=== PATIENT | male | born 1985 | race American Indian/Alaskan Native ===

== ENCOUNTER 2021-07-24 20:52 | Emergency (ER) | payer SELFPAY ==
--- NOTE | 2021-07-25 01:31 | Emergency Department Report ---
ED Neck Pain/Injury HPI - General Chief Complaint: Neck Pain/Injury Stated Complaint: NECK/BACK PAIN WITH N/V Time Seen by Provider: 07/25/21 00:07 Mode of arrival: Ambulatory Limitations: No Limitations - History of Present Illness Initial Comments: 35-year-old -Congolese male Leonie reports emergency department complaining of waking up 1 week ago with neck pain to the left side which felt like a crook. States that he tried to treat it with [id number] medication but it continue to to worsen in intensity and began to be associated with nausea and feverish sensations. Reports no odynophagia or dysphagia. Reports no chest pain, palpitations, no rashes or ear pain. Reports no presyncope noted. Reports no no rashes. Medications [id number] did provide some mild relief to the to the pain but no complete resolutions and symptoms do not worsen no he sleeps well wakes up but remains fairly constant. MD Complaint: neck pain Place: home Severity: mild, moderate Quality: dull Consistency: constant Improves With: none Worsens With: none - Related Data Previous Rx's Medication Instructions Recorded Last Taken Type Amoxicillin [Trimox CAP] 500 mg PO Q8H #21 capsule 07/25/21 Unknown Rx methOCARBAMOL [Robaxin TAB] 750 mg PO Q8H #21 07/25/21 Unknown Rx ED Review of Systems ROS: Stated complaint: NECK/BACK PAIN WITH N/V Other details as noted in HPI ED Past Medical Hx - Medications Home Medications: Home Medications Medication Instructions Recorded Confirmed Last Taken Type Amoxicillin [Trimox CAP] 500 mg PO Q8H #21 capsule 07/25/21 Unknown Rx methOCARBAMOL [Robaxin TAB] 750 mg PO Q8H #21 07/25/21 Unknown Rx ED Physical Exam - General Limitations: No Limitations ED Course Vital Signs 07/24/21 22:20 Temperature 98 F Pulse Rate 102 H Respiratory 16 Rate Blood Pressure 124/80 [Right] O2 Sat by Pulse 100 Oximetry Critical care attestation.: If time is entered above; I have spent that time in minutes in the direct care of this critically ill patient, excluding procedure time. ED Disposition Disposition: HOME / SELF CARE / HOMELESS Condition: Stable Instructions: Neck Exercises, Radicular Pain, Lymphadenopathy, Pain Without a Known Cause Prescriptions: methOCARBAMOL [Robaxin TAB] 750 mg PO Q8H #21 Amoxicillin [Trimox CAP] 500 mg PO Q8H #21 capsule Referrals: ANALISA JULIAN MD [Primary Care Provider] - 3-5 Days
[2021-07-25 01:51] VITALS: BP 133/76
== END 2021-07-25 01:51 | disposition home or self-care (01) ==
LOC: ED 20:52
DX: M54.2 Cervicalgia (principal)
CPT/HCPCS: 99282

== ENCOUNTER 2021-08-10 06:16 | Emergency (ER) | payer SELFPAY ==
[2021-08-10] MEDS ORDERED: KETOROLAC 60 MG/2 ML INJ IM SCH (10:00)
[2021-08-10] MEDS ORDERED: dexAMETHasone 4 MG/ML VIAL IM SCH (10:00)
--- NOTE | 2021-08-10 10:17 | Emergency Department Report ---
ED Neck Pain/Injury HPI - General Chief Complaint: Neck Pain/Injury Stated Complaint: NECK AND LT ARM PAIN Time Seen by Provider: 08/10/21 09:54 Mode of arrival: Ambulatory Limitations: No Limitations - History of Present Illness Initial Comments: 35-year-old black male with no past medical history presents to the emergency department for evaluation of over a week history of left neck and shoulder pain that radiates down his arm. He states that he was seen here about a week ago for same and treated with amoxicillin and muscle relaxants but has had no relief. He states that pain is 8-9 out of 10 persistently and is so bad that he has had problems sleeping. He denies chest pain, shortness of breath, nausea, vomiting, dizziness, and diaphoresis. He denies any injury. MD Complaint: neck injury -: Gradual, week(s) (1.5) Place: home Radiation: left lateral, left shoulder, upper back Severity: severe Severity scale (0 -10): 9 Quality: aching Consistency: constant Worsens With: movement of extremity, movement of neck, other (Palpation) Associated Symptoms: denies: headache, fever, numbness, tingling, weakness, vertigo, difficulty walking, swollen glands, difficulty swallowing, nausea, vomiting Treatments Prior to Arrival: Ibuprofen, other (Muscle relaxant) - Related Data Previous Rx's Medication Instructions Recorded Last Taken Type Amoxicillin [Trimox CAP] 500 mg PO Q8H #21 capsule 07/25/21 Unknown Rx methOCARBAMOL [Robaxin TAB] 750 mg PO Q8H #21 07/25/21 Unknown Rx methylPREDNISolone [Medrol 4MG 4 mg PO DAILY #1 pack 08/10/21 Unknown Rx DOSEPAK (21 tabs)] Allergies Allergy/AdvReac Type Severity Reaction Status Date / Time No Known Allergies Allergy Verified 08/10/21 10:05 ED Review of Systems ROS: Stated complaint: NECK AND LT ARM PAIN Other details as noted in HPI Comment: All other systems reviewed and negative Constitutional: denies: chills, fever, weakness Eyes: denies: vision change Respiratory: denies: cough, shortness of breath, SOB with exertion, SOB at rest Cardiovascular: denies: chest pain, palpitations, dyspnea on exertion Gastrointestinal: denies: abdominal pain, nausea, vomiting Musculoskeletal: back pain Neurological: denies: headache, weakness ED Past Medical Hx - Medications Home Medications: Home Medications Medication Instructions Recorded Confirmed Last Taken Type Amoxicillin [Trimox CAP] 500 mg PO Q8H #21 capsule 07/25/21 Unknown Rx methOCARBAMOL [Robaxin TAB] 750 mg PO Q8H #21 07/25/21 Unknown Rx methylPREDNISolone [Medrol 4MG 4 mg PO DAILY #1 pack 08/10/21 Unknown Rx DOSEPAK (21 tabs)] ED Physical Exam - General Limitations: No Limitations General appearance: alert, in no apparent distress - Head Head exam: Present: atraumatic, normocephalic - Eye Eye exam: Present: normal appearance. Absent: conjunctival injection - Neck Neck exam: Present: normal inspection, tenderness. Absent: full ROM (Left side), lymphadenopathy - Expanded Neck Exam Expanded Neck exam: Absent: midline deformity, anterior neck swelling, tracheal deviation - Respiratory Respiratory exam: Present: normal lung sounds bilaterally. Absent: respiratory distress, wheezes, rales, rhonchi, chest wall tenderness - Cardiovascular Cardiovascular Exam: Present: tachycardia, normal heart sounds - GI/Abdominal GI/Abdominal exam: Present: soft, normal bowel sounds. Absent: distended, tenderness, guarding, rebound, rigid - Extremities Exam Extremities exam: Present: normal inspection - Expanded Upper Extremity Exam Left Shoulder Exam: Present: normal inspection, tenderness, other (Decreased range of motion). Absent: full ROM, swelling, abrasion, laceration, ecchymosis, deformity, crepidus, dislocation, erythema, tenderness over AC joint Upper Arm exam: Present: normal inspection Vascular: Present: normal capillary refill, radial pulse. Absent: vascular compromise - Back Exam Back exam: Present: normal inspection, tenderness (Left upper). Absent: CVA tenderness (R), CVA tenderness (L), paraspinal tenderness, vertebral tenderness - Neurological Exam Neurological exam: Present: alert, oriented X3, CN II-XII intact, normal gait, reflexes normal. Absent: motor sensory deficit - Expanded Neurological Exam Expanded Patient oriented to: Present: person, place, time Speech: Present: fluid speech Cranial nerves: EOM's Intact: Normal Motor strength exam: RUE: 5, LUE: 5, RLE: 5, LLE: 5 Best Eye Response ([place]): (4) open spontaneously Best Motor Response ([place]): (6) obeys commands Best Verbal Response ([place]): (5) oriented [place] Total: 15 - Psychiatric Psychiatric exam: Present: normal affect, normal mood - Skin Skin exam: Present: warm, dry, intact, normal color ED Course Vital Signs 08/10/21 06:20 Temperature 97.7 F Pulse Rate 127 H Respiratory 20 Rate Blood Pressure 154/97 O2 Sat by Pulse 99 Oximetry ED Medical Decision Making - Medical Decision Making 35-year-old black male with no past medical history presents to the emergency department for evaluation of over a week history of left neck and shoulder pain that radiates down his arm. He states that he was seen here about a week ago for same and treated with amoxicillin and muscle relaxants but has had no relief. He states that pain is 8-9 out of 10 persistently and is so bad that he has had problems sleeping. He denies chest pain, shortness of breath, nausea, vomiting, dizziness, and diaphoresis. He denies any injury. Patient denies any other symptoms except for left neck pain radiating down left arm with soreness to muscles and upper back left neck. Description of pain and assessment consistent with cervical radicular pain. He will be treated with steroids, lidocaine patch, and anti-inflammatories. He is advised to take medications as prescribed and follow-up with primary care provider if no improvement or worsening symptoms. He verbalized an understanding of and agreement with plan of care. Critical care attestation.: If time is entered above; I have spent that time in minutes in the direct care of this critically ill patient, excluding procedure time. ED Disposition Clinical Impression: Cervical radicular pain Disposition: HOME / SELF CARE / HOMELESS Is pt being admited?: No Does the pt Need Aspirin: No Condition: Stable Instructions: Cervical Radiculopathy, Cervical Radiculopathy, [id number] Additional Instructions: Take medications as prescribed. Follow-up with primary care provider as needed. Return to the emergency department for any concerning symptoms. Prescriptions: methylPREDNISolone [Medrol 4MG DOSEPAK (21 tabs)] 4 mg PO DAILY #1 pack Referrals: ROXANA STODDARD MD [Referring] - 3-5 Days CAIT GARZA DO [Referring] - 3-5 Days Forms: Work/School Release Form(ED) Time of Disposition: 10:23
[2021-08-10 11:07] VITALS: BP 141/84
== END 2021-08-10 11:07 | disposition home or self-care (01) ==
LOC: ED 06:16
DX: M54.12 Radiculopathy, cervical region (principal)
CPT/HCPCS: 96372; 99282; J1100; J1885

== ENCOUNTER 2021-11-29 18:25 | Emergency (ER) | payer SELFPAY ==
[2021-11-29 19:07] VITALS: BP 152/90
--- NOTE | 2021-11-29 19:49 | XRay Report ---
CHEST 2 VIEWS INDICATION / CLINICAL INFORMATION: chest pain. COMPARISON: None available. FINDINGS: SUPPORT DEVICES: None. HEART / MEDIASTINUM: No significant abnormality. LUNGS / PLEURA: No significant pulmonary or pleural abnormality. No pneumothorax. ADDITIONAL FINDINGS: No significant additional findings. IMPRESSION: 1. No acute findings. Signer Name: Doe Clark MD Signed: 11/29/2021 7:44 PM Workstation Name: [id number]
== END 2021-11-29 22:00 | disposition left against medical advice (07) ==
LOC: ED 18:25
DX: R07.9 Chest pain, unspecified (principal); R06.02 Shortness of breath; Z53.21 Procedure and treatment not carried out due to patient leaving prior to being seen by health care provider
CPT/HCPCS: 71046; 93005

== ENCOUNTER 2022-02-01 09:57 | Emergency (ER) | payer SELFPAY ==
[2022-02-01 11:50] LABS: Basophils % (Auto) 0.6 % (0.0-1.8); Eosinophils % (Auto) 0.7 % (0.0-4.3); Hematocrit 45.2 % (35.5-45.6); Hemoglobin 14.9 gm/dl (11.8-15.2); Lymphocytes # (Auto) 1.5 K/mm3 (1.2-5.4); Lymphocytes % (Auto) 27.5 % (13.4-35.0); Mean Corpuscular HGB Conc 33 % (32-34); Mean Corpuscular Volume 94 fl (84-94); Monocytes # (Auto) 0.4 K/mm3 (0.0-0.8); Monocytes % (Auto) 7.8 % (0.0-7.3); Platelet Count 162 K/mm3 (140-440); Red Cell Distribution Width 13.6 % (13.2-15.2)
[2022-02-01 12:08] LABS: BUN/Creatinine Ratio 10; Blood Urea Nitrogen 11 mg/dL (9-20); Calcium 9.4 mg/dL (8.4-10.2); Hemolysis Index 60
--- NOTE | 2022-02-01 12:33 | Emergency Department Report ---
ED Male HPI - General Chief complaint: Urogenital-Male Stated complaint: POSSIBLE UTI Time Seen by Provider: 02/01/22 12:12 Source: patient Mode of arrival: Ambulatory Limitations: No Limitations - History of Present Illness Initial comments: This is a 36-year-old male nontoxic, well nourished in appearance, no acute signs of distress presents to the ED with c/o of dysuria x several days. Denies any penile discharge. Denies being sexual intercourse. Stated symptoms are intermittent. Patient denies any testicular pain or swelling. Patient den ies any penile ulcers or lesions. Patient denies any nausea, vomiting, chest pain, shortness of breathe, fever, chills, headache, back pain, numbness, tingling, stiff neck. Patient denies any other urinary symptoms. Patient denies any allergies or PMH. MD Complaint: dysuria -: days(s) Radiation: none Severity: mild Severity scale (0 -10): 3 Quality: burning Consistency: intermittent Improves with: none Worsens with: none dysuria. denies: discharge, swelling, mass, rash, urinary retention, blood in urine, fever, nausea/vomiting, incontinence - Related Data Previous Rx's Medication Instructions Recorded Last Taken Type Amoxicillin [Trimox CAP] 500 mg PO Q8H #21 capsule 07/25/21 Unknown Rx methOCARBAMOL [Robaxin TAB] 750 mg PO Q8H #21 07/25/21 Unknown Rx methylPREDNISolone [Medrol 4MG 4 mg PO DAILY #1 pack 08/10/21 Unknown Rx DOSEPAK (21 tabs)] Allergies Allergy/AdvReac Type Severity Reaction Status Date / Time No Known Allergies Allergy Verified 02/01/22 10:06 ED Review of Systems ROS: Stated complaint: POSSIBLE UTI Other details as noted in HPI Comment: All other systems reviewed and negative Constitutional: denies: chills, fever Eyes: denies: eye pain, eye discharge, vision change ENT: denies: ear pain, throat pain Respiratory: denies: cough, shortness of breath, wheezing Cardiovascular: denies: chest pain, palpitations Endocrine: no symptoms reported Gastrointestinal: denies: abdominal pain, nausea, diarrhea Genitourinary: dysuria. denies: urgency, frequency, hematuria, discharge, testicular pain, testicular mass Musculoskeletal: denies: back pain, joint swelling, arthralgia Skin: denies: rash, lesions Neurological: denies: headache, weakness, paresthesias Psychiatric: denies: anxiety, depression Hematological/Lymphatic: denies: easy bleeding, easy bruising ED Past Medical Hx - Social History Smoking Status: Never Smoker - Medications Home Medications: Home Medications Medication Instructions Recorded Confirmed Last Taken Type Amoxicillin [Trimox CAP] 500 mg PO Q8H #21 capsule 07/25/21 Unknown Rx methOCARBAMOL [Robaxin TAB] 750 mg PO Q8H #21 07/25/21 Unknown Rx methylPREDNISolone [Medrol 4MG 4 mg PO DAILY #1 pack 08/10/21 Unknown Rx DOSEPAK (21 tabs)] ED Physical Exam - General Limitations: No Limitations General appearance: alert, in no apparent distress - Head Head exam: Present: atraumatic, normocephalic - Eye Eye exam: Present: normal appearance - Neck Neck exam: Present: normal inspection, full ROM. Absent: lymphadenopathy - Respiratory Respiratory exam: Absent: respiratory distress - Cardiovascular Cardiovascular Exam: Present: regular rate - GI/Abdominal GI/Abdominal exam: Present: soft, normal bowel sounds. Absent: distended, tenderness, guarding, rebound, rigid, diminished bowel sounds - Extremities Exam Extremities exam: Present: normal inspection, full ROM, normal capillary refill. Absent: tenderness - Back Exam Back exam: Present: normal inspection, full ROM. Absent: tenderness, CVA tenderness (R), CVA tenderness (L), muscle spasm, paraspinal tenderness, vertebral tenderness, rash noted - Neurological Exam Neurological exam: Present: alert, oriented X3, normal gait - Psychiatric Psychiatric exam: Present: normal affect, normal mood - Skin Skin exam: Present: warm, dry, intact, normal color. Absent: rash ED Course Vital Signs 02/01/22 10:01 Temperature 98.0 F Pulse Rate 109 H Respiratory 16 Rate Blood Pressure 126/70 [Right] O2 Sat by Pulse 100 Oximetry - Reevaluation(s) Reevaluation #1: 02/01/22 12:34 Patient is speaking in full sentences with no signs of distress noted. ED Medical Decision Making - Lab Data Result diagrams: 02/01/22 11:11 02/01/22 11:11 Lab Results 02/01/22 02/01/22 02/01/22 Range/Units 11:11 11:11 12:05 WBC 5.6 (4.5-11.0) K/mm3 RBC 4.80 (3.65-5.03) M/mm3 Hgb 14.9 (11.8-15.2) gm/dl Hct 45.2 (35.5-45.6) % MCV 94 (84-94) fl MCH 31 (28-32) pg MCHC 33 (32-34) % RDW 13.6 (13.2-15.2) % Plt Count 162 (140-440) K/mm3 Lymph % (Auto) 27.5 (13.4-35.0) % [place] % (Auto) 7.8 H (0.0-7.3) % Eos % (Auto) 0.7 (0.0-4.3) % Baso % (Auto) 0.6 (0.0-1.8) % Lymph # (Auto) 1.5 (1.2-5.4) K/mm3 [place] # (Auto) 0.4 (0.0-0.8) K/mm3 Eos # (Auto) 0.0 (0.0-0.4) K/mm3 Baso # (Auto) 0.0 (0.0-0.1) K/mm3 Seg Neutrophils % 63.4 (40.0-70.0) % Seg Neutrophils # 3.6 (1.8-7.7) K/mm3 Sodium 137 (137-145) mmol/L Potassium 4.7 (3.6-5.0) mmol/L Chloride 99.8 (98-107) mmol/L Carbon Dioxide 27 (22-30) mmol/L Anion Gap 15 mmol/L BUN 11 (9-20) mg/dL Creatinine 1.1 (0.8-1.3) mg/dL Estimated GFR > 60 ml/min BUN/Creatinine Ratio 10 % Glucose 99 (75-100) mg/dL Calcium 9.4 (8.4-10.2) mg/dL Urine Color Straw (Yellow) Urine Turbidity Clear (Clear) Specific Export (Man) 1.010 (1.003-1.030) Ur Protein (Man) Negative (Negative) mg/dL Ur Ketones (Man) Negative (Negative) Ur Nitrite (Man) Negative (Negative) Ur Reducing Substances Not Reportable Urine Bilirubin (Man) Negative (Negative) Urine Ictotest Not Reportable Leukocyte Esterase (Man) Negative (Negative) Urine WBC (Auto) < 1.0 (0.0-6.0) /HPF Urine RBC (Auto) < 1.0 (0.0-6.0) /HPF U Epithel Cells (Auto) < 1.0 (0-13.0) /HPF Urine RBC (Manual) Negative (Negative) - Medical Decision Making 36-year-old male that presents with dysuria. Patient is stable was examined by me. There is no abdominal tenderness. No pelvic pain. UA obtained. Gonorrhe a chlamydia UA pending. Patient was instructed to return in 3-5 days for GC results. Patient was instructed to Follow-up with a primary care doctor in 3-5 days or if symptoms worsen and continue return to emergency room as soon as possible. At time of discharge, the patient does not seem toxic or ill in appearance. No acute signs of distress noted. Patient agrees to discharge treatment plan of care. No further questions noted by the patient. Critical care attestation.: If time is entered above; I have spent that time in minutes in the direct care of this critically ill patient, excluding procedure time. ED Disposition Clinical Impression: Dysuria Disposition: 01 HOME / SELF CARE / HOMELESS Is pt being admited?: No Does the pt Need Aspirin: No Condition: Stable Instructions: Dysuria Additional Instructions: Follow-up with a primary care doctor in 3-5 days or if symptoms worsen and continue return to emergency room as soon as possible. Referrals: PRIMARY MD NAEYLY [Referring] - 3-5 Days ANALISA JULIAN MD [Staff Physician] - 3-5 Days Time of Disposition: 13:32
[2022-02-01 13:10] LABS: Color,Urine Straw (Yellow); RBC,Urine < 1.0 /HPF (0.0-6.0); WBC,Urine < 1.0 /HPF (0.0-6.0)
[2022-02-01 18:15] VITALS: BP 118/74
== END 2022-02-01 18:15 | disposition home or self-care (01) ==
LOC: ED 09:57
DX: R30.0 Dysuria (principal); Z79.899 Other long term (current) drug therapy
CPT/HCPCS: 36415; 80048; 81001; 85025; 99283